=== PATIENT | male | born 1950 | race Caucasian/White ===

== ENCOUNTER 2016-09-09 06:50 | Inpatient (IN) | payer OTHER ==
--- NOTE | ~2016-09-09 | HP ---
History And Physical [place] [id number] [facility]. [address] NAME: MADDI ROMAN : 48 STATUS : ADM IN [facility]#: [id number] AGE: 66 ADM/REG DATE : 09/09/16 MR#: [id number] REPORT SERV DATE: 09/09/16 DICTATED BY: MAULIK DONIS DATE: 09/09/16 REPORT STATUS : Draft TRANSCRIBED BY: MODL DATE: 09/09/16 DATE OF ADMISSION: 09/09/2016 CHIEF COMPLAINT: Cough. HISTORY OF PRESENT ILLNESS: The patient is a very pleasant 66-year-old white male. He states about three days ago, he developed a cough. He states he coughed extensively but could not seem to cough the sputum up. He did not have any documented fever, but did not take his temperature. He had some sweats and chills and felt short of breath. He normally wears 2 L of O2 for COPD, he states. He feels short of breath on a daily basis. However, this was worse. He did not report any nausea, vomiting, or diarrhea. He had some abdominal pain from coughing. He had no chest pain. He presented today with dyspnea and was evaluated in the emergency department. He states he has not been in the hospital in the last year, and he has not taken any recent steroids or antibiotics. The patient also reports that his weight has gone up over the last month or so from 234 to 260 pounds and that he has had some pretty significant leg swelling or edema over the last several days. He does not really report true orthopnea or PND when I questioned him today. PAST MEDICAL HISTORY: 1. Diastolic CHF. 2. Hypertension. 3. Obesity. 4. Status post pacer. 5. CVA. 6. Diabetes mellitus. 7. COPD, on chronic O2 requiring on 2 L. 8. JAMI, but noncompliant with CPAP. 9. Atrial fibrillation, on chronic anticoagulation. PAST SURGICAL HISTORY: 1. Pacemaker placement. 2. Right arm surgery. 3. Left knee surgery. 4. Prostate surgery. SOCIAL HISTORY: He does not smoke or drink. He quit smoking in his 20s. He lives with his . He is . ALLERGIES: FLU VACCINE, LATEX, AND NYLON. FAMILY HISTORY: Positive for diabetes in multiple family members and also CAD in both of his parents. HOME MEDICATIONS: Reviewed and are attached. REVIEW OF SYSTEMS: History And Physical [address] [place]. [address] NAME: MADDI ROMAN : [birth year] STATUS : ADM IN PAT#: [id number] AGE: 66 ADM/REG DATE : 09/09/16 MR#: [id number] REPORT SERV DATE: 09/09/16 DICTATED BY: MAULIK DONSI DATE: 09/09/16 REPORT STATUS : Draft TRANSCRIBED BY: MODL DATE: 09/09/16 Full 10-point review of systems was obtained. Pertinent positive mentioned in the HPI. PHYSICAL EXAMINATION: VITAL SIGNS: Sats are 95% on 3 L, temperature is but that is his T- max, BP was 151/54, pulse is in the 60s, and respiratory rates in the 20s. GENERAL: Morbidly obese white male, in no apparent distress. HEENT: Normocephalic, atraumatic. Throat is clear. NECK: Supple. HEART: Distant S1, S2. LUNGS: He has diffuse rhonchorous breath sounds and also wheezing, mostly on expiration. Some of the rhonchorous breath sounds clear with coughing, but they tend to persist. He has some very discreet crackles in the bases. ABDOMEN: Distended but soft and nontender. EXTREMITIES: Warm and dry. He has 2+ pulses in his feet. He has 2+ edema, but it is right greater than left. SKIN: Intact without rash or lesion. NEUROLOGIC: He is alert. He is oriented to person, place, and time. He has symmetrical strength and tone in all four extremities. LABORATORY AND X-RAY: EKG shows a paced rhythm. ABG 7.48/44/59. CBC: H and H are 12 and 38, white count is 20, platelets are 289. Coags show an INR of 3.0. Lactate was 1.1. Procalcitonin was 0.81. Sodium 135, potassium 4.3, chloride 96, CO2 of 34, BUN and creatinine 19 and 1.11, glucose 192. Albumin is 3, alkaline phosphatase is 143, cut off 117, AST is 41. Urinalysis shows 5 reds. Chest x-ray shows low lung volumes with bibasilar atelectasis right greater than left versus a right-sided infiltrate. There was minimal fullness of the pulmonary vasculature, and he has cardiomegaly with pacemaker in site. BNP was 179. Followup glucose is 273. ASSESSMENT/PLAN: 1. Cough with leukocytosis and elevated procalcitonin, possible right lower lobe infiltrate certainly points to a possibility of pneumonia. I think given his procalcitonin and leukocytosis, we have to consider this is the primary etiology of his dyspnea. We would recommend covering him with azithromycin and Rocephin. We will culture his blood and sputum. We will check a Legionella and streptococcal antigen. We will provide DuoNebs as well as some other nebulized therapy. Please see below. We will follow up all cultures and see how he looks in the next 24-48 hours. 2. Chronic obstructive pulmonary disease with exacerbation. He is wheezing somewhat today, but he is not particularly tight. I think we are going to try initially just to treat him with some nebulized therapy in the form of DuoNeb along with Pulmicort and Brovana. If he does not have significant improvement we will add some steroids, but would like to avoid this if we can give his underlying diabetes. He is already History And Physical [address] [address] NAME: MADDI ROMAN : [birth year] STATUS : ADM IN [facility]#: [id number] AGE: 66 ADM/REG DATE : 09/09/16 MR#: [id number] REPORT SERV DATE: 09/09/16 DICTATED BY: MAULIK DONIS DATE: 09/09/16 REPORT STATUS : Draft TRANSCRIBED BY: MODL DATE: 09/09/16 hyperglycemic on large doses of insulin. 3. Possible volume overload. He does have evidence of increasing peripheral edema. His BNP is up a little bit I think it is reasonable to diurese him over 24 hours. We will increase his Demadex to 1 mg IV q.8 hours X3 doses, then resume his p.o. Demadex. We will need to watch his renal function and electrolytes closely while we are doing this. 4. Diabetes mellitus. We will continue his current insulin regimen plus level 2 sliding scale. Fingerstick blood sugars a.c. and h.s. and see how things go over the next 24 hours. We can avoid steroids IV great. 5. Obstructive sleep apnea, noncompliant with CPAP. 6. Chronic atrial fibrillation, on Coumadin. We will do daily PT/INR. He is currently rate controlled and paced rhythm. 7. Obesity, needs weight loss. 8. Hypertension. Continue home medications. 9. Deep venous thrombosis prophylaxis. He is already fully anticoagulated. 10.Disposition. Pending above aforementioned plan and workup. JESENIA/JONAS Maulik Donis M.D. / [id number] CC: Perico Wallace MD
--- NOTE | ~2016-09-09 | DS ---
Discharge Summary [facility] [place] [address] [facility] [place]. [address] NAME: MADDI ROMAN : 48 STATUS : DIS IN PAT#: [id number] AGE: 66 ADM/REG DATE : 09/09/16 MR#: [id number] REPORT SERV DATE: 09/13/16 DICTATED BY: BELINDA GALVAN DATE: 09/12/16 REPORT STATUS : Draft TRANSCRIBED BY: MODL DATE: 09/12/16 ADMISSION DATE: 09/09/2016 DISCHARGE DATE: 09/12/2016 DISCHARGE DIAGNOSES: 1. Community-acquired pneumonia. 2. Acute on chronic hypoxemic and hypercapnic respiratory failure. 3. Acute exacerbation of chronic obstructive pulmonary disease. 4. Type 2 diabetes with hyper and hypoglycemia, on chronic insulin, with outpatient insulin resistance. 5. Mild oropharyngeal dysphagia. 6. Acute on chronic diastolic congestive heart failure. 7. Hypoprothrombinemia, on chronic Coumadin. 8. Sick sinus syndrome with previous pacemaker and chronic atrial fibrillation. 9. Previous stroke. 10.Obesity with sleep apnea, on CPAP. 11.Systemic hypertension. 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 Serum immunofixation pending at the time of discharge, outpatient followup needed. 13.Elevated alkaline phosphatase and ALT with present illness. Outpatient followup needed. 14.Elevated PSA and microhematuria, followed by Dr. Nabeel Beauchamp. 15.History of iron deficiency, 02/2016. 16.History of colon polyps, 2013. OPERATIONS AND PROCEDURES: None. PRESENT ILLNESS: This is a 66-year-old white male, regular patient of Dr. Ellis, who was triaged in the emergency room on 09/09/2016 at 0554 hours with a change in mental status and productive cough. Admission vital signs: Blood pressure 151/54, temperature 99.9, pulse 81, respirations 22, and O2 saturation 94% on 3 L. In the emergency room, a chest x-ray was done. He was thought to have pneumonia. He was referred to the Hospitalist Service for admission. He was seen by Dr. Jacqui Avalos and admitted as described on admission history and physical examination. Additional history included three days of cough without sputum, sweats, chills, and dyspnea despite his home 2 L of O2. ADDITIONAL HISTORY: Per Dr. Avalos. PHYSICAL EXAMINATION: Per Dr. Avalos. ADMISSION LABORATORY: Per Dr. Avalos. Discharge Summary [facility] [address] [place]. [address] NAME: MADDI ROMAN : 48 STATUS : DIS IN PAT#: [id number] AGE: 66 ADM/REG DATE : 09/09/16 MR#: [id number] REPORT SERV DATE: 09/13/16 DICTATED BY: BELINDA GALVAN DATE: 09/12/16 REPORT STATUS : Draft TRANSCRIBED BY: MODL DATE: 09/12/16 HOSPITAL COURSE: He was admitted by Dr. Avalos with what was thought to be: 1. Pneumonia. 2. COPD exacerbation. 3. Possible volume overload. All occurring in the setting of the above-mentioned problem list. On admission, cultures were obtained. He was started on Zithromax and Rocephin. He was started on aerosols. He was given additional diuretic therapy. His hospital care was assumed by the undersigned. A procalcitonin on admission was 0.81. His white blood cell count on admission was 20.3 and with the above-mentioned therapy, had fallen to 9.7 at discharge. Urinary streptococcal antigen and Legionella antigens were not detected. A sputum culture grew normal maria m. One blood culture was no growth. A second blood culture grew Staph species, agglutination negative, thought to be contaminant. Radiographically with the above-mentioned therapy over 24 hours, there was mild improvement. Clinically, there was a slow but steady improvement in his cough, sputum, and dyspnea such that by discharge, he was about back to his baseline state. In fact, his O2 requirement had returned to its baseline state of 2 L with O2 sats of 96%. On exam at discharge, he had minimal wheezing and rhonchi which was a substantial improvement. At home, the patient was using Toujeo insulin 50 units in the morning and 60 units at bedtime and Humalog 40 units three times daily. These doses had been continued on admission. In hospital, he developed significant hypoglycemia. This persisted until all doses were reduced 50%. A.c. and h.s. blood sugars the day prior to discharge on 50% reduction 216, 127, 129, and 221 with a discharge day fasting of 216 and a.c. lunch 180. He was noted to be anemic on admission with a hemoglobin of 12.4. Subsequent hemoglobins were 11.1, 11.2, and 11.3. Three stools were checked for blood given his past history and were negative. A ferritin was high at 395. A B12 had been normal in February of last year, was not rechecked, nor was a TSH. A serum protein electrophoresis was checked and an immunofixation is pending because of the possibility of a monoclonal protein. This will require followup as an outpatient. On admission labs, he had a mildly elevated alkaline phosphatase of 143 and AST of 41, which will likewise require outpatient followup. A swallow eval was done while hospitalized to evaluate for oropharyngeal dysphagia contributing to his community-acquired pneumonia. No aspiration or penetration was seen, but he did exhibit mildly delayed swallow initiation, mild residual, which cleared with independent second swallow. Discharge Summary [place] [id number] [facility] [place]. [address] NAME: MADDI ROMAN : 48 STATUS : DIS IN PAT#: [id number] AGE: 66 ADM/REG DATE : 09/09/16 MR#: [id number] REPORT SERV DATE: 09/13/16 DICTATED BY: BELINDA GALVAN DATE: 09/12/16 REPORT STATUS : Draft TRANSCRIBED BY: JONAS DATE: 09/12/16 He is on chronic Coumadin. He did not report any mucosal bleeding. With his acute illness and antimicrobial therapy, INRs were 3, 3.4, 3.2, and 2.4 at discharge. He did not require Coumadin it while hospitalized. By 09/12/2016, it was felt that he had achieved a level of improvement and stability where he could be safely discharged home with outpatient followup to see Dr. Ellis next week. He also has an outpatient followup to see Dr. Beauchamp next week. He will continue his home diet and activity. He will continue his home O2 at 2 L/minute by nasal cannula. He will continue his home CPAP. MEDICATIONS: Aspirin 81 mg daily, Bumex 1 mg twice daily (may not be taking regularly), carvedilol 3.125 mg twice daily, Lanoxin 0.25 mg daily, iron 325 mg daily, gabapentin 600 mg three times daily. His morning Toujeo will reduce from 50 to 30 units pending outpatient followup, at bedtime from 60 to 40 units pending followup. In addition, his Humalog will be reduced to 25 units a.c. pending followup. He will continue Synthroid 175 mcg daily, Prinivil 40 mg daily, MiraLAX twice daily, Aldactone 25 mg daily, Coumadin 5 mg daily pending outpatient PT and INRs, and Glucophage 1000 mg twice daily. He was given a prescription for a nebulizer plus DuoNebs to use four times daily and p.r.n. as well as Flonase nasal spray. He uses OTC phenylephrine 10 mg daily as needed, Requip at bedtime as needed, nitroglycerin as needed, and Tylenol. He will complete his antimicrobial therapy with Ceftin 500 mg twice daily for the next six days having received four days of Rocephin. He received four days of IV Zithromax, which was not continued at discharge because of oral intolerance. DISCHARGE TIME: Greater than 30 minutes. DD/JONAS Belinda Galvan M.D. / [id number] CC: Belinda Galvan M.D. Adalid Ellis MD
[2016-09-09 06:40] LABS: BE (BASE EXCESS) 7.4 MEQ/L (0 +/- 2.5); CARBOXYHEMOGLOBIN 1.9 % (0-3); DEVICE NC; HCO3 (ACTUAL BICARBONATE) 31.8 MEQ/L (23-27); HEMOBLOGIN CONTENT 12.6 G/DL (14-18); INSTRUMENT SERIAL # 8087; METHEMOGLOBIN 0.2 % (0-3); O2 CONTENT 16.1 VOL% (18-24); PCO2 (CO2 TENSION) 44 MMHG (35-45); PO2 (O2 TENSION) 59 MMHG (79-93); SAMPLE Arterial; pH 7.48 (7.37-7.43)
[2016-09-09 06:42] LABS: BASOPHILS 0.1 %; BASOPHILS ABSOLUTE 0.03 10/3/uL (0.0-0.16); EOSINOPHILS 0.2 %; EOSINOPHILS ABSOLUTE 0.04 10/3/uL (0.0-0.53); HEMATOCRIT 38.4 % (40.0-51.0); HEMOGLOBIN 12.4 g/dL (13.6-17.8); IMMATURE GRANULOCYTES 0.4 %; IMMATURE GRANULOCYTES ABSOLUTE 0.08 10/3/uL (0.0-0.11); LYMPHOCYTES 6.8 %; LYMPHOCYTES ABSOLUTE 1.37 10/3/uL (0.67-4.30); MEAN CORPUS HGB CONC 32.3 g/dL (32.0-36.0); MEAN PLATELET VOLUME 9.7 fL (9.2-13.0); MONOCYTES 8.4 %; MONOCYTES ABSOLUTE 1.71 10/3/uL (0.21-1.20); NEUTROPHILS 84.1 %; NEUTROPHILS ABSOLUTE 17.02 10/3/uL (2.02-8.40); PLATELET COUNT 289 10/3/uL (150-400); RBC DISTRIBUTION WIDTH 14.1 % (12.0-16.0); RED CELL COUNT 3.94 10/6/uL (4.7-6.1)
[2016-09-09 06:43] LABS: ER CBC TAT 0 Hrs 00 Mins; MANUAL DIFF NO %; MEAN CORPUSCULAR HEMOGLOB 31.5 pg (26.0-34.0); MEAN CORPUSCULAR VOLUME 97.5 fL (80-100); WHITE BLOOD CELLS 20.3 10/3/uL (4.5-10.5)
[2016-09-09 06:44] LABS: PARTIAL THROMBO TIME 43.4 SEC (22.5-37.2)
[2016-09-09 06:46] LABS: PROTIME (NOT ORD) 30.7 SEC (12.0-14.5)
[~2016-09-09 06:50] MED LIST: *UNABLE1; ADVAIR230P INH; ASAB PO; AUG500 PO; B12100T PO; B12250T PO; BUM1 PO; C5 PO; CHOLESTEROL RX PO; COREG25 PO; COREG3 PO; COUMADIN4 MG PO; COUMADIN6 MG PO; DIGITEK0.25 MG PO; DIGOXIN PO; GABAPENTIN PO; GLUCOPHAGE1000 MG PO; HUMALOG SC; INHALER SAMPLE INH; KLOR-CON 1010 MEQ PO; KLOR-CON M2020 MEQ PO; L40 PO; LAN25 PO; LANTUS SC; LEVEMIR SC; LEVOTHYROXIN150 MCG PO; LEVOTHYROXIN175 MCG PO; LEVOTHYROXIN25 MCG PO; LIPITOR10 PO; LIPITOR40 PO; LISINOPRIL PO; LISINOPRIL40 MG PO; LORT7 PO; LORTAB10 PO; METHOC750B PO; NEUR100 PO; NEUR300 PO; NITROSTAT0.4 MG SL; NORCO1 TAB PO; NORV5 PO; PRILOSEC OTC20 MG PO; PROTONIX PO; REQUIP1 PO; REQUIP5 MG PO; ROPINIROLE PO; SEPTRA DS1 TAB PO; SPIRO25 PO; SYMBICORT 160/41 INH INH; TESSALON200 MG PO; [UNRECOGNIZED DRUG - OTHER] PO
[2016-09-09 06:53] LABS: BUN (BLOOD UREA NITROGEN) 19 MG/DL (6-23); CALCIUM, SERUM 9.1 MG/DL (8.5-10.4); CHLORIDE, SERUM 96 MMOL/L (96-112); CREATININE 1.11 MG/DL (0.70-1.30); GFR AFRICAN AMERICAN 79 ML/MIN (>=60); GFR NON AFRICAN AMERICAN 68 ML/MIN (>=60); GLUCOSE, SERUM 192 MG/DL (60-99); POTASSIUM, SERUM 4.3 MMOL/L (3.5-5.3); SGPT(ALT) 33 U/L (5-65); SODIUM, SERUM 135 MMOL/L (135-148); TOTAL BILIRUBIN 0.6 MG/DL (0-1.2); TOTAL PROTEIN 7.8 G/DL (6.0-8.5)
[2016-09-09 06:54] LABS: A/G RATIO 0.6 (0.7-1.9); ALKALINE PHOSPHATASE 143 U/L (45-117); CO2 (CARBON DIOXIDE) 34 MMOL/L (24-34); GLOBULIN 4.8 G/DL (2.5-4.1); LACTATE 1.1 MMOL/L (0.3-2.4)
[2016-09-09 06:55] LABS: SGOT(AST) 41 U/L (5-40)
[2016-09-09] MEDS ORDERED: LAN25 PO (07:13)
[2016-09-09] MEDS ORDERED: SPIRO25 PO (07:14)
[2016-09-09] MEDS ORDERED: LISINOPRIL40 MG PO (07:14)
[2016-09-09] MEDS ORDERED: COREG3 PO (07:15)
[2016-09-09] MEDS ORDERED: BUM1 PO (07:15)
[2016-09-09] MEDS ORDERED: C5 PO (07:15)
[2016-09-09] MEDS ORDERED: NEUR600 PO (07:16)
[2016-09-09] MEDS ORDERED: GLUCOPHAGE1000 MG PO (07:16)
[2016-09-09] MEDS ORDERED: FERROUS SULF325 M1 PO (07:16)
[2016-09-09] MEDS ORDERED: KLOR-CON M2020 MEQ PO (07:17)
[2016-09-09] MEDS ORDERED: PRIN20 PO (07:18)
[2016-09-09] MEDS ORDERED: SUDOGEST PE10 MG PO (07:18)
[2016-09-09] MEDS ORDERED: ASAB PO (07:19)
[2016-09-09] MEDS ORDERED: REQUIP1 PO (07:19)
[2016-09-09] MEDS ORDERED: ACET500CAP PO (07:24)
[2016-09-09] MEDS ORDERED: MIRALAX POWDER1 PKT PO (07:24)
[2016-09-09] MEDS ORDERED: SYNTHROID175 MCG PO (07:24)
[2016-09-09] MEDS ORDERED: TOUJEO SC ×2 (07:25→08:30)
[2016-09-09] MEDS ORDERED: HUMALOG SC (07:26)
[2016-09-09] MEDS ORDERED: NITROSTAT0.4 MG SL (07:26)
[2016-09-09 07:44] LABS: PROCALCITONIN 0.81 ng/mL (<0.5)
[2016-09-09 08:07] LABS: ASCORBIC ACID (UR NOT ORDER) NEG (NEG); BILIRUBIN, URINE NEGATIVE (NEG); KETONE, URINE NEGATIVE (NEG); LEUKOCYTE ESTERASE(NOT OR NEG (NEG); NITRITE (URINE) NEG (NEG); WBC (NOT ORDERED) (RFLEX) 1 (0-5)
[2016-09-09 13:21] LABS: LACTATE 1.6 MMOL/L (0.3-2.4)
[2016-09-10 03:33] LABS: BASOPHILS 0.1 %; BASOPHILS ABSOLUTE 0.02 10/3/uL (0.0-0.16); EOSINOPHILS ABSOLUTE 0.14 10/3/uL (0.0-0.53); HEMATOCRIT 34.7 % (40.0-51.0); HEMOGLOBIN 11.1 g/dL (13.6-17.8); IMMATURE GRANULOCYTES 0.4 %; IMMATURE GRANULOCYTES ABSOLUTE 0.06 10/3/uL (0.0-0.11); LYMPHOCYTES 13.9 %; MEAN CORPUSCULAR HEMOGLOB 31.4 pg (26.0-34.0); MEAN CORPUSCULAR VOLUME 98.3 fL (80-100); MEAN PLATELET VOLUME 9.2 fL (9.2-13.0); MONOCYTES 8.7 %; MONOCYTES ABSOLUTE 1.26 10/3/uL (0.21-1.20); NEUTROPHILS 75.9 %; NEUTROPHILS ABSOLUTE 10.96 10/3/uL (2.02-8.40); PLATELET COUNT 276 10/3/uL (150-400); RBC DISTRIBUTION WIDTH 13.9 % (12.0-16.0); RED CELL COUNT 3.53 10/6/uL (4.7-6.1); WHITE BLOOD CELLS 14.4 10/3/uL (4.5-10.5)
[2016-09-10 03:34] LABS: MANUAL DIFF NO %
[2016-09-10 03:39] LABS: INTERNATIONAL NORMAL RATI 3.4 UNITS (-); PROTIME (NOT ORD) 33.7 SEC (12.0-14.5)
[2016-09-10 03:42] LABS: BUN (BLOOD UREA NITROGEN) 22 MG/DL (6-23); CALCIUM, SERUM 8.6 MG/DL (8.5-10.4); CHLORIDE, SERUM 99 MMOL/L (96-112); CO2 (CARBON DIOXIDE) 35 MMOL/L (24-34); CREATININE 0.92 MG/DL (0.70-1.30); GFR AFRICAN AMERICAN 99 ML/MIN (>=60); GFR NON AFRICAN AMERICAN 86 ML/MIN (>=60); POTASSIUM, SERUM 3.9 MMOL/L (3.5-5.3); SODIUM, SERUM 138 MMOL/L (135-148); TROPONIN I 0.02 NG/ML (<0.05)
[2016-09-10 03:46] LABS: GLUCOSE, SERUM 140 MG/DL (60-99)
[2016-09-10 15:30] LABS: T PROTEIN (ELECT)(NOT OR 7.1 G/DL (6.0-8.5)
[2016-09-10 15:45] LABS: ALLENS TEST Pos; BE (BASE EXCESS) 7.3 MEQ/L (0 +/- 2.5); CARBOXYHEMOGLOBIN 1.2 % (0-3); DEVICE NC; HEMOBLOGIN CONTENT 12.8 G/DL (14-18); INSTRUMENT SERIAL # 8083; METHEMOGLOBIN 0.1 % (0-3); O2 CONTENT 17.2 VOL% (18-24); PCO2 (CO2 TENSION) 52 MMHG (35-45); PO2 (O2 TENSION) 81 MMHG (79-93); SAMPLE Arterial; pH 7.43 (7.37-7.43)
[2016-09-11 04:46] LABS: BASOPHILS 0.2 %; BASOPHILS ABSOLUTE 0.02 10/3/uL (0.0-0.16); EOSINOPHILS 1.4 %; EOSINOPHILS ABSOLUTE 0.16 10/3/uL (0.0-0.53); HEMATOCRIT 35.3 % (40.0-51.0); HEMOGLOBIN 11.2 g/dL (13.6-17.8); IMMATURE GRANULOCYTES 0.9 %; LYMPHOCYTES 18.1 %; MEAN CORPUS HGB CONC 31.7 g/dL (32.0-36.0); MEAN CORPUSCULAR HEMOGLOB 31.1 pg (26.0-34.0); MEAN CORPUSCULAR VOLUME 98.1 fL (80-100); MEAN PLATELET VOLUME 9.7 fL (9.2-13.0); MONOCYTES 10.8 %; MONOCYTES ABSOLUTE 1.19 10/3/uL (0.21-1.20); NEUTROPHILS 68.6 %; NEUTROPHILS ABSOLUTE 7.59 10/3/uL (2.02-8.40); PLATELET COUNT 323 10/3/uL (150-400); WHITE BLOOD CELLS 11.1 10/3/uL (4.5-10.5)
[2016-09-11 04:47] LABS: INTERNATIONAL NORMAL RATI 3.2 UNITS (-); MANUAL DIFF NO %; PROTIME (NOT ORD) 32.5 SEC (12.0-14.5)
[2016-09-11 04:54] LABS: BUN (BLOOD UREA NITROGEN) 19 MG/DL (6-23); CALCIUM, SERUM 8.9 MG/DL (8.5-10.4); CHLORIDE, SERUM 101 MMOL/L (96-112); CO2 (CARBON DIOXIDE) 33 MMOL/L (24-34); CREATININE 0.89 MG/DL (0.70-1.30); GFR AFRICAN AMERICAN 103 ML/MIN (>=60); GFR NON AFRICAN AMERICAN 88 ML/MIN (>=60); GLUCOSE, SERUM 224 MG/DL (60-99); POTASSIUM, SERUM 4.2 MMOL/L (3.5-5.3); SODIUM, SERUM 140 MMOL/L (135-148)
[2016-09-11 08:48] LABS: HEPATITIS B SURFACE ANTIGEN NON-REACTIVE (NON-REACT)
[2016-09-11 09:01] LABS: HEPATITIS C ANTIBODY NON-REACTIVE (NON-REACT)
[2016-09-11 09:02] LABS: HEPATITIS B CORE AB IGM NON-REACTIVE (NON-REAC)
[2016-09-11 09:03] LABS: HEP A ANTIBODY IGM NON-REACTIVE (NON-REACT)
[2016-09-11 12:12] LABS: A/G 0.82 RATIO (0.9-2.10); ALB RELATIVE % 45.2 % (60.0-89.0); ALBUMIN (ELECTRO) 3.21 GM/DL (3.2-5.5); ALPHA 1 RELAT % (NOT ORD) 5.7 % (1.0-4.0); ALPHA 2 (ELECTRO) 1.32 GM/DL (0.5-1.10); ALPHA 2 RELAT % 18.6 % (4.5-26.0); BETA GLOBULIN (SPE) 1.09 GM/DL (0.60-1.30); BETA RELATIVE % 15.4 % (9.0-22.0); GAMMA GLOBULIN (SPE) 1.07 G/DL (0.70-1.60); GAMMA RELAT % 15.1 % (6.0-22.0)
[2016-09-12 05:38] LABS: BASOPHILS 0.3 %; BASOPHILS ABSOLUTE 0.03 10/3/uL (0.0-0.16); EOSINOPHILS 2.8 %; EOSINOPHILS ABSOLUTE 0.27 10/3/uL (0.0-0.53); HEMATOCRIT 34.5 % (40.0-51.0); HEMOGLOBIN 11.3 g/dL (13.6-17.8); LYMPHOCYTES 23.8 %; LYMPHOCYTES ABSOLUTE 2.31 10/3/uL (0.67-4.30); MEAN CORPUS HGB CONC 32.8 g/dL (32.0-36.0); MEAN CORPUSCULAR HEMOGLOB 31.7 pg (26.0-34.0); MEAN CORPUSCULAR VOLUME 96.6 fL (80-100); MEAN PLATELET VOLUME 9.2 fL (9.2-13.0); MONOCYTES ABSOLUTE 0.97 10/3/uL (0.21-1.20); NEUTROPHILS 62.1 %; NEUTROPHILS ABSOLUTE 6.02 10/3/uL (2.02-8.40); PLATELET COUNT 345 10/3/uL (150-400); RBC DISTRIBUTION WIDTH 13.9 % (12.0-16.0); RED CELL COUNT 3.57 10/6/uL (4.7-6.1); WHITE BLOOD CELLS 9.7 10/3/uL (4.5-10.5)
[2016-09-12 05:44] LABS: MANUAL DIFF NO %
[2016-09-12 05:54] LABS: BUN (BLOOD UREA NITROGEN) 16 MG/DL (6-23); CALCIUM, SERUM 8.8 MG/DL (8.5-10.4); CHLORIDE, SERUM 100 MMOL/L (96-112); CO2 (CARBON DIOXIDE) 34 MMOL/L (24-34); CREATININE 0.93 MG/DL (0.70-1.30); GFR AFRICAN AMERICAN 98 ML/MIN (>=60); GFR NON AFRICAN AMERICAN 85 ML/MIN (>=60); GLUCOSE, SERUM 199 MG/DL (60-99); POTASSIUM, SERUM 4.2 MMOL/L (3.5-5.3); SODIUM, SERUM 141 MMOL/L (135-148)
[2016-09-12 05:59] LABS: INTERNATIONAL NORMAL RATI 2.4 UNITS (-)
[2016-09-12 06:01] LABS: PROTIME (NOT ORD) 25.6 SEC (12.0-14.5)
[2016-09-12] MEDS ORDERED: DUONEB INH (11:11)
[2016-09-12] MEDS ORDERED: NORCO1 TAB PO (11:12)
[2016-09-12] MEDS ORDERED: FLONASE NAS (11:14)
[2016-09-12] MEDS ORDERED: CEFT5 PO (11:14)
== END 2016-09-12 16:36 | disposition home or self-care (01) | DRG 291 ==
LOC: ER 06:50 → 6NO 08:54
PROVIDERS: Internal Medicine; Specialist
DX: I11.0 Hypertensive heart disease with heart failure (principal); J96.21 Acute and chronic respiratory failure with hypoxia; J18.9 Pneumonia, unspecified organism; E11.649 Type 2 diabetes mellitus with hypoglycemia without coma; J44.0 Chronic obstructive pulmonary disease with (acute) lower respiratory infection; Z99.81 Dependence on supplemental oxygen; R13.12 Dysphagia, oropharyngeal phase; I48.2 Chronic atrial fibrillation; J96.22 Acute and chronic respiratory failure with hypercapnia; J44.1 Chronic obstructive pulmonary disease with (acute) exacerbation; I50.33 Acute on chronic diastolic (congestive) heart failure; E11.65 Type 2 diabetes mellitus with hyperglycemia; G89.29 Other chronic pain; D47.2 Monoclonal gammopathy; Z86.73 Personal history of transient ischemic attack (TIA), and cerebral infarction without residual deficits; Z79.4 Long term (current) use of insulin; Z95.0 Presence of cardiac pacemaker; Z87.891 Personal history of nicotine dependence; Z83.3 Family history of diabetes mellitus; Z82.49 Family history of ischemic heart disease and other diseases of the circulatory system; Z86.010 Personal history of colon polyps; Z79.01 Long term (current) use of anticoagulants; Z88.7 Allergy status to serum and vaccine; Z91.040 Latex allergy status
CPT/HCPCS: 36600; 71010; 71020; 74230; 80048; 80053; 80074; 81001; 82272; 82728; 82805; 82962; 83605; 83735; 83880; 84145; 84155; 84165; 84484; 85025; 85610; 85730; 87040; 87070; 87150; 87205; 87449; 92611-GN; 94640; 96365; 96375; 99285; A9270-GY; J0456; J2543